=== PATIENT | male | born 1960 | race Asian ===

== ENCOUNTER 2017-10-14 15:59 | Emergency (ER) | payer OTHER ==
[~2017-10-14] VITALS: Ht 167.6 cm; Wt 80.9 kg
[~2017-10-14 15:59] MED LIST: ASPI81 PO; LOSA50TA37 PO; METF500T4 PO; OMEP20 PO; TAMS0.4C32 PO; [UNRECOGNIZED DRUG - CODE] PO
[2017-10-14 16:07] LABS: GLUCOSE,POINT OF CARE 104 MG/DL (70-110)
[2017-10-14] MEDS ORDERED: LOSA50TA37 PO (16:07)
[2017-10-14] MEDS ORDERED: NITR.4 SL (16:07)
[2017-10-14] MEDS ORDERED: METO-558 PO (16:07)
[2017-10-14] MEDS ORDERED: ATOR40TA28 PO (16:07)
[2017-10-14 16:39] LABS: BASOPHILS % (AUTO) 0.5 % (0.0-2.0); EOSINOPHILS % (AUTO) 2.1 % (1.0-6.0); HEMATOCRIT 42.7 % (41-53); HEMOGLOBIN 14.9 g/dL (13.5-17.5); LYMPHOCYTES # (AUTO) 1.7 K/uL (1.0-4.8); LYMPHOCYTES % (AUTO) 22.2 % (22.0-44.0); MEAN CORPUSCULAR HEMOGLOBIN 30.9 pg (26.0-34.0); MEAN CORPUSCULAR HGB CONC 34.7 G/dL (31.0-37.0); MEAN CORPUSCULAR VOLUME 89 fL (80-100); MONOCYTES # (AUTO) 0.4 K/uL (0.1-1.0); MONOCYTES % (AUTO) 5.5 % (2.0-9.0); NEUTROPHILS # (AUTO) 5.3 K/uL (1.8-7.7); NEUTROPHILS % (AUTO) 69.7 % (40.0-70.0); PLATELET COUNT (AUTO) 183 K/uL (150-450); RED BLOOD CELL COUNT(AUTO) 4.81 MIL/uL (4.50-5.90); RED CELL DISTRIBUTION WIDTH 13.4 % (11.5-14.5)
[2017-10-14 16:50] LABS: CREATININE 1.3 mg/dL (0.60-1.30); POTASSIUM 3.9 mmol/L (3.5-5.1)
[2017-10-14 16:57] LABS: ALBUMIN 4.2 g/dL (3.4-5.0); BILIRUBIN,TOTAL 0.8 mg/dL (0.1-1.0)
[2017-10-14] MEDS ORDERED: ASPIRIN 325 MG EC TABLET PO ONE (18:45)
[2017-10-14 19:44] VITALS: BP 143/90
== END 2017-10-14 19:45 | disposition home or self-care (01) ==
LOC: EMS 16:00
DX: R07.89 Other chest pain (principal); E11.9 Type 2 diabetes mellitus without complications; E78.00 Pure hypercholesterolemia, unspecified; I10 Essential (primary) hypertension; Z79.82 Long term (current) use of aspirin; Z95.1 Presence of aortocoronary bypass graft; Z87.891 Personal history of nicotine dependence
CPT/HCPCS: 82962; 93005; 99285

== ENCOUNTER 2018-09-22 13:53 | Inpatient (IN) | payer OTHER ==
[~2018-09-22] VITALS: Ht 167.6 cm; Wt 79.0 kg
[~2018-09-22 13:53] MED LIST changes: +ATOR40TA28 PO; -LOSA50TA37 PO; +LOSA50TA64 PO; +METF-960 PO; -METF500T4 PO; +METO-558 PO; +NITR.4 SL; -OMEP20 PO
[2018-09-22 14:03] LABS: GLUCOSE,POINT OF CARE 133 MG/DL (70-110)
[2018-09-22] MEDS ORDERED: MULT-1297 PO (14:06)
[2018-09-22] MEDS ORDERED: AMLO-511 PO (14:06)
[2018-09-22] MEDS ORDERED: CARV6 PO (14:06)
[2018-09-22] MEDS ORDERED: RANO500T3 PO (14:06)
[2018-09-22] MEDS ORDERED: NITROGLYCERIN 2% (1 GM=INCH) PACKET TP ONE (14:30)
[2018-09-22 14:57] LABS: BASOPHILS % (AUTO) 0.4 % (0.0-2.0); EOSINOPHILS % (AUTO) 2.8 % (1.0-6.0); HEMATOCRIT 41.4 % (41-53); HEMOGLOBIN 14.2 g/dL (13.5-17.5); LYMPHOCYTES # (AUTO) 1.3 K/uL (1.0-4.8); LYMPHOCYTES % (AUTO) 24.7 % (22.0-44.0); MEAN CORPUSCULAR HEMOGLOBIN 30.6 pg (26.0-34.0); MEAN CORPUSCULAR HGB CONC 34.4 G/dL (31.0-37.0); MEAN CORPUSCULAR VOLUME 89 fL (80-100); MONOCYTES # (AUTO) 0.3 K/uL (0.1-1.0); MONOCYTES % (AUTO) 6.5 % (2.0-9.0); NEUTROPHILS # (AUTO) 3.5 K/uL (1.8-7.7); NEUTROPHILS % (AUTO) 65.6 % (40.0-70.0); PLATELET COUNT (AUTO) 169 K/uL (150-450); RED BLOOD CELL COUNT(AUTO) 4.65 MIL/uL (4.50-5.90)
[2018-09-22 15:21] LABS: ANION GAP 8 mmol/L (8-16); CALCIUM, TOTAL 8.9 mg/dL (8.8-10.5); CARBON DIOXIDE 27 mmol/L (22-29); CHLORIDE 101 mmol/L (98-107); CREATININE 1.19 mg/dL (0.60-1.30); GLOMERULAR FILTR. RATE CALC > 60 mL/min (>60); GLUCOSE,RANDOM 131 mg/dL (70-110); SODIUM SERUM 136 mmol/L (136-145); UREA NITROGEN, BLOOD 14 mg/dL (7-18)
[2018-09-22 15:26] LABS: ALANINE AMINOTRANSFERASE 36 U/L (12-78); ALBUMIN 3.9 g/dL (3.4-5.0); ALKALINE PHOSPHATASE 60 U/L (46-116); ASPARTATE AMINOTRANSFERASE 22 U/L (15-37); BILIRUBIN,TOTAL 0.6 mg/dL (0.1-1.0); TOTAL PROTEIN, SERUM 8.1 g/dL (6.4-8.2)
[2018-09-22 15:47] LABS: B-TYPE NATRIURETIC PEPTIDE 25 pg/mL (0-100)
[2018-09-22] MEDS ORDERED: ONDANSETRON HCL 4 MG/2 ML VIAL IVP PRN ×2 (16:30→21:30)
[2018-09-22] MEDS ORDERED: ACETAMINOPHEN 325 MG TABLET PO PRN ×2 (16:30→21:30)
[2018-09-22 18:52] VITALS: BP 128/79
[2018-09-22 20:07] VITALS: BP 124/74
[2018-09-22] MEDS ORDERED: INSULIN LISPRO 100 UNITS/ML SQ PRN (21:30)
[2018-09-22] MEDS ORDERED: MAGNESIUM HYDROXIDE SUSPENSION 30 ML UDCUP PO PRN (21:30)
[2018-09-22] MEDS ORDERED: BISACODYL 10 MG RECTAL RECTAL SUPPOSITORY PR PRN (21:30)
[2018-09-22] MEDS ORDERED: HYDROCODONE/ACETAMINOPHEN 5-325 MG TABLET PO PRN (21:30)
[2018-09-22] MEDS ORDERED: DEXTROSE 50%-WATER 25 GM/50 ML SYRINGE IVP PRN (21:30)
[2018-09-22] MEDS ORDERED: ZOLPIDEM TARTRATE 5 MG TABLET PO PRN (21:30)
[2018-09-22] MEDS ORDERED: MORPHINE SULFATE 2 MG/ML SYRINGE IVP PRN (21:30)
[2018-09-23] MEDS: HEPARIN SODIUM,PORCINE 5,000 UNITS/ML VIAL SQ SCH ×3 (00:10→15:11)
[2018-09-23 00:16] VITALS: BP 111/60
[2018-09-23 03:48] VITALS: BP 107/60
[2018-09-23 08:06] VITALS: BP 110/63
[2018-09-23] MEDS: AmLODIPine BESYLATE 5 MG TABLET PO SCH (09:00)
[2018-09-23] MEDS: LOSARTAN POTASSIUM 50 MG TABLET PO SCH (09:00)
[2018-09-23] MEDS: DOCUSATE SODIUM 100 MG CAPSULE PO SCH ×2 (09:00→20:28)
[2018-09-23] MEDS: CARVEDILOL 6.25 MG TABLET PO SCH (09:00)
[2018-09-23] MEDS: ASPIRIN 81 MG CHEWABLE TABLET PO SCH (09:08)
[2018-09-23] MEDS: RANOLAZINE 500 MG ER TABLET PO SCH ×2 (09:10→20:45)
[2018-09-23] MEDS: PANTOPRAZOLE SODIUM 40 MG DR TABLET PO SCH (09:10)
[2018-09-23] MEDS: TAMSULOSIN HCL 0.4 MG CAPSULE PO SCH (09:10)
[2018-09-23] MEDS: MULTIVITAMINS WITH MINERALS, THERAPEUTIC TABLET PO SCH (09:10)
[2018-09-23] MEDS: ATORVASTATIN CALCIUM 40 MG TABLET PO SCH (09:11)
[2018-09-23 11:31] VITALS: BP 124/75
[2018-09-23 11:59] LABS: GLUCOMETER DEV NAME(LOC) 5S.2; GLUCOSE,POINT OF CARE 90 MG/DL (70-110)
[2018-09-23 12:29] LABS: GLUCOMETER DEV NAME(LOC) 5N.2; GLUCOSE,POINT OF CARE 97 MG/DL (70-110)
[2018-09-23 15:40] VITALS: BP 110/61
[2018-09-23 18:52] LABS: GLUCOSE,POINT OF CARE 161 MG/DL (70-110)
[2018-09-23 18:53] LABS: GLUCOMETER DEV NAME(LOC) 5S.2
[2018-09-23 19:39] VITALS: BP 125/71
[2018-09-24 00:04] VITALS: BP 131/80
[2018-09-24 01:18] LABS: GLUCOMETER DEV NAME(LOC) 5N.2; GLUCOSE,POINT OF CARE 161 MG/DL (70-110)
[2018-09-24 04:49] VITALS: BP 124/76
[2018-09-24 07:35] VITALS: BP 132/76
[2018-09-24] MEDS: CARVEDILOL 6.25 MG TABLET PO SCH (09:00)
[2018-09-24] MEDS: TAMSULOSIN HCL 0.4 MG CAPSULE PO SCH (09:07)
[2018-09-24] MEDS: ATORVASTATIN CALCIUM 40 MG TABLET PO SCH (09:07)
[2018-09-24] MEDS: RANOLAZINE 500 MG ER TABLET PO SCH ×2 (09:07→21:08)
[2018-09-24] MEDS: PANTOPRAZOLE SODIUM 40 MG DR TABLET PO SCH (09:08)
[2018-09-24] MEDS: MULTIVITAMINS WITH MINERALS, THERAPEUTIC TABLET PO SCH (09:08)
[2018-09-24] MEDS: HEPARIN SODIUM,PORCINE 5,000 UNITS/ML VIAL SQ SCH ×3 (09:09→17:16)
[2018-09-24] MEDS: DOCUSATE SODIUM 100 MG CAPSULE PO SCH ×2 (09:09→21:08)
[2018-09-24] MEDS: ASPIRIN 81 MG CHEWABLE TABLET PO SCH (09:09)
[2018-09-24] MEDS: LOSARTAN POTASSIUM 50 MG TABLET PO SCH (09:10)
[2018-09-24] MEDS: AmLODIPine BESYLATE 5 MG TABLET PO SCH (09:10)
[2018-09-24 10:28] LABS: GLUCOMETER DEV NAME(LOC) 5N.2; GLUCOSE,POINT OF CARE 107 MG/DL (70-110)
[2018-09-24 11:20] VITALS: BP 141/74
[2018-09-24 12:48] LABS: GLUCOMETER DEV NAME(LOC) 5N.2; GLUCOSE,POINT OF CARE 83 MG/DL (70-110)
[2018-09-24 15:30] VITALS: BP 146/78
[2018-09-24] MEDS: ISOSORBIDE MONONITRATE 30 MG ER TABLET PO SCH (17:13)
[2018-09-24 19:31] VITALS: BP 138/72
[2018-09-25] VITALS (17 sets, daily range): BP systolic 105–151; BP diastolic 52–87
[2018-09-25 06:59] LABS: BASOPHILS % (AUTO) 0.5 % (0.0-2.0); EOSINOPHILS % (AUTO) 3.6 % (1.0-6.0); HEMATOCRIT 39.2 % (41-53); HEMOGLOBIN 13.6 g/dL (13.5-17.5); LYMPHOCYTES # (AUTO) 1.7 K/uL (1.0-4.8); LYMPHOCYTES % (AUTO) 25.2 % (22.0-44.0); MEAN CORPUSCULAR HEMOGLOBIN 30.8 pg (26.0-34.0); MEAN CORPUSCULAR HGB CONC 34.6 G/dL (31.0-37.0); MEAN CORPUSCULAR VOLUME 89 fL (80-100); MONOCYTES # (AUTO) 0.6 K/uL (0.1-1.0); MONOCYTES % (AUTO) 8.6 % (2.0-9.0); NEUTROPHILS # (AUTO) 4.1 K/uL (1.8-7.7); NEUTROPHILS % (AUTO) 62.1 % (40.0-70.0); PLATELET COUNT (AUTO) 157 K/uL (150-450); RED BLOOD CELL COUNT(AUTO) 4.41 MIL/uL (4.50-5.90); RED CELL DISTRIBUTION WIDTH 13.2 % (11.5-14.5)
[2018-09-25 07:04] LABS: GLUCOMETER DEV NAME(LOC) 5N.2; GLUCOSE,POINT OF CARE 96 MG/DL (70-110)
[2018-09-25 07:09] LABS: PROTHROMBIN TIME 10.1 SEC (9.4-11.6)
[2018-09-25 07:23] LABS: ANION GAP 5 mmol/L (8-16); CARBON DIOXIDE 30 mmol/L (22-29); CHLORIDE 103 mmol/L (98-107); CREATININE 1.23 mg/dL (0.60-1.30); GLUCOSE,RANDOM 99 mg/dL (70-110); POTASSIUM 3.8 mmol/L (3.5-5.1); SODIUM SERUM 138 mmol/L (136-145); UREA NITROGEN, BLOOD 16 mg/dL (7-18)
[2018-09-25 07:24] LABS: ALANINE AMINOTRANSFERASE 37 U/L (12-78); ALBUMIN 3.5 g/dL (3.4-5.0); ALKALINE PHOSPHATASE 53 U/L (46-116); ASPARTATE AMINOTRANSFERASE 17 U/L (15-37); BILIRUBIN,TOTAL 0.5 mg/dL (0.1-1.0); CALCIUM, TOTAL 8.4 mg/dL (8.8-10.5); GLOMERULAR FILTR. RATE CALC > 60 mL/min (>60); TOTAL PROTEIN, SERUM 7.2 g/dL (6.4-8.2)
[2018-09-25] MEDS: HEPARIN SODIUM,PORCINE 5,000 UNITS/ML VIAL SQ SCH ×4 (08:00→23:18)
[2018-09-25] MEDS ORDERED: IOHEXOL 300 MG/ML 150 ML VIAL ONE (08:38)
[2018-09-25] MEDS ORDERED: LIDOCAINE/PF 1% 30 ML VIAL ONE (08:38)
[2018-09-25] MEDS ORDERED: HEPARIN SODIUM 1000 UNITS/NS 1,000 ML ONE (08:38)
[2018-09-25] MEDS ORDERED: SODIUM BICARBONATE 50 MEQ/50 ML VIAL ONE (08:38)
[2018-09-25] MEDS ORDERED: IOHEXOL 300 MG/ML 100 ML VIAL ONE (08:57)
[2018-09-25] MEDS: ASPIRIN 81 MG CHEWABLE TABLET PO SCH (09:00)
[2018-09-25] MEDS ORDERED: SODIUM CHLORIDE 0.9% 500 ML IV ONE (09:36)
[2018-09-25] MEDS ORDERED: HEPARIN SODIUM 2,000 UNITS in HEPARIN SODIUM 1000 UNITS/NS 1,000 ML IARTER ONE (09:36)
[2018-09-25] MEDS ORDERED: IOHEXOL 300 MG/ML 150 ML VIAL IARTER ONE (09:45)
[2018-09-25] MEDS ORDERED: LIDOCAINE 1% 30 ML/SOD BICARB 8.4% 4 ML SQ ONE (09:45)
[2018-09-25] MEDS ORDERED: IOHEXOL 300 MG/ML 100 ML VIAL IARTER ONE (09:45)
[2018-09-25] MEDS: PANTOPRAZOLE SODIUM 40 MG DR TABLET PO SCH (11:22)
[2018-09-25] MEDS: MULTIVITAMINS WITH MINERALS, THERAPEUTIC TABLET PO SCH (11:22)
[2018-09-25] MEDS: CARVEDILOL 6.25 MG TABLET PO SCH (11:22)
[2018-09-25] MEDS: ISOSORBIDE MONONITRATE 30 MG ER TABLET PO SCH (11:23)
[2018-09-25] MEDS: TAMSULOSIN HCL 0.4 MG CAPSULE PO SCH (11:23)
[2018-09-25] MEDS: LOSARTAN POTASSIUM 50 MG TABLET PO SCH (11:23)
[2018-09-25] MEDS: AmLODIPine BESYLATE 5 MG TABLET PO SCH (11:23)
[2018-09-25] MEDS: DOCUSATE SODIUM 100 MG CAPSULE PO SCH ×2 (11:24→21:00)
[2018-09-25] MEDS: ATORVASTATIN CALCIUM 40 MG TABLET PO SCH (11:24)
[2018-09-25] MEDS: RANOLAZINE 500 MG ER TABLET PO SCH ×2 (11:24→21:04)
[2018-09-26 04:31] VITALS: BP 105/59
[2018-09-26 06:29] LABS: BASOPHILS % (AUTO) 0.4 % (0.0-2.0); EOSINOPHILS % (AUTO) 3.6 % (1.0-6.0); HEMATOCRIT 38.9 % (41-53); HEMOGLOBIN 13.4 g/dL (13.5-17.5); LYMPHOCYTES # (AUTO) 1.6 K/uL (1.0-4.8); LYMPHOCYTES % (AUTO) 26.3 % (22.0-44.0); MEAN CORPUSCULAR HEMOGLOBIN 30.7 pg (26.0-34.0); MEAN CORPUSCULAR HGB CONC 34.3 G/dL (31.0-37.0); MEAN CORPUSCULAR VOLUME 90 fL (80-100); MONOCYTES # (AUTO) 0.5 K/uL (0.1-1.0); MONOCYTES % (AUTO) 8.2 % (2.0-9.0); NEUTROPHILS # (AUTO) 3.8 K/uL (1.8-7.7); NEUTROPHILS % (AUTO) 61.5 % (40.0-70.0); PLATELET COUNT (AUTO) 156 K/uL (150-450); RED BLOOD CELL COUNT(AUTO) 4.34 MIL/uL (4.50-5.90); RED CELL DISTRIBUTION WIDTH 13.3 % (11.5-14.5)
[2018-09-26 06:59] LABS: ALBUMIN 3.5 g/dL (3.4-5.0); BILIRUBIN,TOTAL 0.6 mg/dL (0.1-1.0); CALCIUM, TOTAL 8.6 mg/dL (8.8-10.5); CREATININE 1.26 mg/dL (0.60-1.30); MAGNESIUM 1.9 mg/dL (1.80-2.40); POTASSIUM 4.1 mmol/L (3.5-5.1); TOTAL PROTEIN, SERUM 7.1 g/dL (6.4-8.2)
[2018-09-26 07:07] VITALS: BP 120/76
[2018-09-26] MEDS: AmLODIPine BESYLATE 5 MG TABLET PO SCH (08:41)
[2018-09-26] MEDS: ISOSORBIDE MONONITRATE 30 MG ER TABLET PO SCH (08:41)
[2018-09-26] MEDS: RANOLAZINE 500 MG ER TABLET PO SCH (08:41)
[2018-09-26] MEDS: DOCUSATE SODIUM 100 MG CAPSULE PO SCH (08:41)
[2018-09-26] MEDS: PANTOPRAZOLE SODIUM 40 MG DR TABLET PO SCH (08:41)
[2018-09-26] MEDS: TAMSULOSIN HCL 0.4 MG CAPSULE PO SCH (08:41)
[2018-09-26] MEDS: MULTIVITAMINS WITH MINERALS, THERAPEUTIC TABLET PO SCH (08:42)
[2018-09-26] MEDS: HEPARIN SODIUM,PORCINE 5,000 UNITS/ML VIAL SQ SCH (08:42)
[2018-09-26] MEDS: ASPIRIN 81 MG CHEWABLE TABLET PO SCH (08:42)
[2018-09-26] MEDS: LOSARTAN POTASSIUM 50 MG TABLET PO SCH (08:42)
[2018-09-26] MEDS: ATORVASTATIN CALCIUM 40 MG TABLET PO SCH (08:42)
[2018-09-26] MEDS: CARVEDILOL 6.25 MG TABLET PO SCH (08:48)
[2018-09-26 11:08] VITALS: BP 112/68
== END 2018-09-26 13:30 | disposition home or self-care (01) | DRG 287 ==
LOC: EMS 13:54 → 5N 17:16
PROVIDERS: ADMIT Internal Medicine; ATTEND Internal Medicine
PROC: 4A023N7 Measurement of Cardiac Sampling and Pressure, Left Heart, Percutaneous Approach (ICD-10-PCS; principal; 2018-09-25)
PROC: B2111ZZ Fluoroscopy of Multiple Coronary Arteries using Low Osmolar Contrast (ICD-10-PCS; 2018-09-25)
PROC: B2151ZZ Fluoroscopy of Left Heart using Low Osmolar Contrast (ICD-10-PCS; 2018-09-25)
PROC: B3101ZZ Fluoroscopy of Thoracic Aorta using Low Osmolar Contrast (ICD-10-PCS; 2018-09-25)
PROC: B2131ZZ Fluoroscopy of Multiple Coronary Artery Bypass Grafts using Low Osmolar Contrast (ICD-10-PCS; 2018-09-25)
PROC: B2181ZZ Fluoroscopy of Left Internal Mammary Bypass Graft using Low Osmolar Contrast (ICD-10-PCS; 2018-09-25)
DX: I25.110 Atherosclerotic heart disease of native coronary artery with unstable angina pectoris (principal); E11.69 Type 2 diabetes mellitus with other specified complication; E78.00 Pure hypercholesterolemia, unspecified; E78.5 Hyperlipidemia, unspecified; I10 Essential (primary) hypertension; N40.0 Benign prostatic hyperplasia without lower urinary tract symptoms; Z95.1 Presence of aortocoronary bypass graft; Z87.891 Personal history of nicotine dependence; Z79.899 Other long term (current) drug therapy
CPT/HCPCS: 83735; 93005; 93306; 93459; 93567; G0378; J1644; J3490; Q9967